=== PATIENT | male | born 1975 | race Caucasian/White ===

== ENCOUNTER 2020-12-29 12:55 | Emergency (ER) | payer BC, OTHER ==
[~2020-12-29 12:55] MED LIST: LEVAQUIN750 MG PO; MUCINEX600 MG PO; ZOFRAN4 MG PO
== END 2020-12-29 15:45 | disposition home or self-care (01) ==
LOC: ER1 12:55
DX: R05 Cough (principal); R09.81 Nasal congestion; Z20.822 Contact with and (suspected) exposure to COVID-19
CPT/HCPCS: 0240U; 71045; 87081; 87880; 99283

== ENCOUNTER → 2021-06-02 | Outpatient (CLI) | payer BC, OTHER | LOC: KOH-I 11:13 | DX: M54.31 Sciatica, right side (principal); M54.2 Cervicalgia; M47.812 Spondylosis without myelopathy or radiculopathy, cervical region; M47.816 Spondylosis without myelopathy or radiculopathy, lumbar region | CPT/HCPCS: 72040; 72100 ==

== ENCOUNTER 2022-05-17 12:26 | Emergency (ER) | payer BC, OTHER ==
[2022-05-17 13:43] LABS: HEMOGLOBIN 17.6 gm/dl (14.0-17.5); RED BLOOD COUNT 5.28 M/UL (4.20-5.50); WHITE BLOOD COUNT 8.4 K/UL (4.5-11.0)
[2022-05-17 14:01] LABS: BUN/CREATININE RATIO 17 (0-10)
== END 2022-05-17 14:53 | disposition left against medical advice (07) ==
LOC: ER1 12:26
DX: R10.9 Unspecified abdominal pain (principal); R11.0 Nausea; R19.7 Diarrhea, unspecified; Z20.822 Contact with and (suspected) exposure to COVID-19
CPT/HCPCS: 0240U; 80053; 81001; 83690; 85025; 99281